=== PATIENT | male | born 1990 | race Caucasian/White ===

== ENCOUNTER 2017-05-02 08:26 | Emergency (ER) | payer BC ==
[2017-05-02] MEDS ORDERED: Ondansetron 4 MG Tab.DIS PO ONE ×2 (08:45→09:38)
[2017-05-02] MEDS ORDERED: Ondansetron 4 MG Tab.DIS ONE ×2 (08:47→09:44)
[2017-05-02] MEDS ORDERED: Sodium Chloride 0.9% 1,000 ML IV ONE (08:59)
--- NOTE | 2017-05-02 17:49 | ER ---
HISTORY OF PRESENT ILLNESS: A 27-year-old male here with complaints of nausea and vomiting since midnight. He has vomited many times. The patient feels very tired. He has some abdominal discomfort from all of the vomiting. He has just had an occasional loose stool. He states that he was feeling fine yesterday. [place] is [place] here on a [place] trip with other people and he is the only one who got sick so far. Again, he is not running a fever. OBJECTIVE: GENERAL APPEARANCE: The patient is awake, he vomited once as soon as I got into the exam room. He appears slightly pale after he was done vomiting, but in no respiratory distress. VITAL SIGNS: Vital signs are reviewed. He is afebrile. LUNGS: Clear. CARDIAC: Heart sounds are distinct without murmurs. ABDOMEN: Soft. There is mild diffuse tenderness with palpation. Bowel sounds are present and active. HEENT: Oral mucous membranes moist. Posterior pharynx shows mild redness. SKIN: Warm and dry. INITIAL TREATMENT: Zofran 4 mg was given sublingually. Labs include a CBC and comprehensive metabolic panel, they are basically normal. White count is normal. DIAGNOSIS: Gastroenteritis. TREATMENT PLAN: The patient was given a bolus of normal saline 1 L. He was given a second dose of Zofran as well. He did not have any additional vomiting episodes while in the emergency room. He states he feels mostly tired. 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 I will give him a few more Zofran tablets to take as needed. He is to take liquids using small, but frequent drinks starting with water, increasing slowly as tolerated. I advised patient that this condition using only lasts a day to 2 or possibly 2 days. If his symptoms do not improve over the next 12-24 hours, he is to call or come back in for re- evaluation or of course if his condition should get worse. CRS/MODL /[id number]
== END 2017-05-02 10:20 | disposition home or self-care (01) ==
LOC: LB.ED 08:26
DX: K52.9 Noninfective gastroenteritis and colitis, unspecified (principal)
CPT/HCPCS: 36415; 80048; 85025; 96360; 99284; A9270; J7040